=== PATIENT | female | born 1955 | race Caucasian/White ===

== ENCOUNTER → 2016-08-15 | Outpatient (CLI) | payer OTHER | LOC: BRMIMAGING 13:20 | PROVIDERS: ATTEND Family Medicine | DX: M81.0 Age-related osteoporosis without current pathological fracture (principal); Z78.0 Asymptomatic menopausal state ==

== ENCOUNTER 2016-08-24 06:09 | Inpatient (IN) | payer OTHER ==
[2016-08-24] MEDS ORDERED: TRANEXAMIC ACID 3,000 MG/50 ML BAG IRR ONE (06:49)
[2016-08-24] MEDS ORDERED: VANCOMYCIN 1 GM VIAL ONE (06:50)
[2016-08-24] MEDS ORDERED: CEFAZOLIN 2 GM/DEXTR 100 ML IV ONE (07:00)
[2016-08-24] MEDS ORDERED: ROPI/epiNEPH/KETOROLAC JOINT COCKTAIL IU ONE (07:00)
[2016-08-24] MEDS ORDERED: ACETAMINOPHEN 325 MG TAB PO ONE (07:00)
[2016-08-24] MEDS ORDERED: FAMOTIDINE 20 MG TAB PO ONE (07:00)
[2016-08-24] MEDS ORDERED: TRANEXAMIC ACID 3,000 MG in NS 50 ML IRR ONE (07:00)
[2016-08-24] MEDS ORDERED: CHLORHEXIDINE GLUC HIBICLENS 118 ML BTL TP ONE (07:00)
[2016-08-24] MEDS ORDERED: LIDOCAINE 1% 2 ML INJ ONE (07:34)
[2016-08-24] MEDS ORDERED: LR 1,000 ML IV ONE (07:45)
[2016-08-24] MEDS ORDERED: LIDOCAINE 1% 5 ML SDV ID PRN (07:45)
[2016-08-24] MEDS ORDERED: MIDAZOLAM 2 MG/2 ML VIAL ONE (07:48)
[2016-08-24] MEDS ORDERED: PROPOFOL/EMULSION 500 MG/50 ML BOTTLE IV ONE (07:53)
[2016-08-24] MEDS ORDERED: BUPIVACAINE 0.5% 30 ML SDV ONE (07:56)
[2016-08-24] MEDS ORDERED: CYCLOBENZAPRINE 10 MG TAB PO PRN (09:25)
[2016-08-24] MEDS ORDERED: PROMETHAZINE HCL 25 MG SUPPR PR PRN (09:25)
[2016-08-24] MEDS ORDERED: LACTULOSE 20 GM/30 ML UDCUP PO PRN (09:25)
[2016-08-24] MEDS ORDERED: PROMETHAZINE HCL 25 MG/ML INJ IVP PRN (09:25)
[2016-08-24] MEDS ORDERED: TEMAZEPAM 15 MG CAP PO PRN (09:25)
[2016-08-24] MEDS ORDERED: diphenhydrAMINE 25 MG CAP PO PRN (09:25)
[2016-08-24] MEDS ORDERED: ONDANSETRON DISINTEGRATING 4 MG TAB PO PRN (09:25)
[2016-08-24] MEDS ORDERED: BISACODYL 10 MG SUPP PR PRN (09:25)
[2016-08-24] MEDS ORDERED: METOCLOPRAMIDE 10 MG/2 ML VIAL IVP PRN (09:25)
[2016-08-24] MEDS ORDERED: MAGNESIUM HYDROXIDE 30 ML UDCUP PO PRN (09:25)
[2016-08-24] MEDS ORDERED: POLYETHYLENE GLYCOL 3350 17 GM PKT PO PRN (09:25)
[2016-08-24] MEDS ORDERED: DIPHENOXYLATE/ATROPINE LOMOTIL 1 TAB PO PRN (09:25)
[2016-08-24] MEDS ORDERED: PHARMACY PAIN CONSULT 1 EA MISC PRN (09:25)
[2016-08-24] MEDS ORDERED: ONDANSETRON 4 MG/2 ML VIAL IVP PRN (09:25)
--- NOTE | 2016-08-24 09:25 | POSTOPPROG ---
Post Op Note Date of Operation: 08/24/16 Surgeon: Nixon Dwyer Cullet Washer: irene dwyer Anesthesiologist: dr. mercado Anesthesia: Spinal Pre-op Diagnosis: left hip OA Post-op Diagnosis: same Indication: left hip pain due to OA that failed conservative measures Procedure: L GURPREET ant approach Findings: severe hip OA Inf/Abcess present in the surg proc area at time of surgery?: No EBL: 100-500
[2016-08-24] MEDS ORDERED: LR 1,000 ML IV SCH (09:30)
[2016-08-24] MEDS: traMADol 50 MG TAB PO PRN ×4 (12:07→22:10)
[2016-08-24] MEDS: ceFAZolin 2 GM/DEXTROSE 100 ML IV SCH ×2 (14:40→22:06)
[2016-08-24] MEDS: ASPIRIN 325 MG TAB PO SCH (19:42)
[2016-08-24] MEDS: FAMOTIDINE 20 MG TAB PO SCH (19:43)
[2016-08-24] MEDS: SENNOSIDES/DOCUSATE SODIUM TAB PO SCH (21:15)
[2016-08-25 04:49] LABS: HEMATOCRIT 27.4 % (38.0-47.0); HEMOGLOBIN 9.4 g/dL (12.6-16.3)
[2016-08-25 08:04] VITALS: TEMP 98
[2016-08-25] MEDS: ASPIRIN 325 MG TAB PO SCH (08:27)
[2016-08-25] MEDS: traMADol 50 MG TAB PO PRN (08:27)
[2016-08-25] MEDS: FAMOTIDINE 20 MG TAB PO SCH (08:27)
[2016-08-25] MEDS: SENNOSIDES/DOCUSATE SODIUM TAB PO SCH (08:28)
[2016-08-25 11:39] VITALS: BP 93/46; PULSE 70; RESP 20; O2SAT 90
--- NOTE | 2016-08-25 12:50 | SOAPPROG ---
SOAP Progress Note Assessment/Plan: Assessment: Alexandra is doing well POD 1 s/p L GURPREET pain management is well controlled on oral pain meds VTE ppx: aspirin recommended. cont MELANIE garcia Anemia: level expected initially postop D/c planning: d/c to home today, pending release from PT Plan: 08/25/16 12:49 Subjective: Alexandra is doing well today, denies SOB, chest pain and N/V> Objective: Vital Signs Temp Pulse Resp BP Pulse Ox 36.6 C 70 20 93/46 L 90 L 08/25/16 08:00 08/25/16 11:38 08/25/16 11:38 08/25/16 11:38 08/25/16 11:38 Laboratory Results 08/25/16 04:32 08/24/16 08/25/16 08/26/16 05:59 05:59 05:59 Intake Total 3130 Output Total 1500 Balance 1630 LLE: incision dressing is clean and dry, NVI, +pf/df ICD10 Worksheet Patient Problems: Problems Problem Status Onset Primary localized osteoarthritis of left hip Acute
--- NOTE | 2016-08-27 09:33 | GOP ---
[f rep st] OPERATIVE REPORT DATE OF OPERATION: 08/24/2016 SURGEON: Barbie Dodd MD FOOD SERVICE CLERK: LETA Antonio. ANESTHESIA: Spinal. PREOPERATIVE DIAGNOSIS: Left hip osteoarthritis. POSTOPERATIVE DIAGNOSIS: Left hip osteoarthritis. PROCEDURE PERFORMED: Left total hip arthroplasty. FINDINGS: ESTIMATED BLOOD LOSS: 200 cc. INDICATIONS: The patient has progressively worsening arthritis of the hip which has failed medical management. The patient understands the treatment options including continued non-operative care and has selected surgical intervention. The patient has decided to undergo total hip arthroplasty via the direct anterior approach, understanding the risks of the procedure including , but not limited to, neurovascular injury, infection, persistent pain, component wear and loosening, deep venous thrombosis, pulmonary embolism, limb length inequality, hip instability (including dislocation), and intra-operative fractures. DESCRIPTION OF PROCEDURE: After proper identification of the patient including verification and marking the surgical site, the patient was brought to the operating room and placed in the supine position. All bony prominences were well padded. Anesthesia was induced without complication and intravenous prophylactic antibiotics were administered prior to skin incision. The operative leg was placed in the Trumpf Arch table extension and the well leg in a Yellofin leg [place]. The patient was prepped and draped in the usual sterile fashion. The C-arm was draped for intra-operative fluoroscopy to check acetabular position, femoral component position including leg length and femoral offset. Attention was then drawn to surgical exposure of the hip. An incision was made with a #10 Bard Vitaly blade starting 3 cm lateral and 3 cm distal to the anterior superior iliac spine measuring 8-10 cm and coursing distally toward the greater trochanter. The skin and subcutaneous tissues were divided sharply down to the fascia harpreet. The fascia harpreet was incised in line with the skin incision exposing the underlying tensor fascia harpreet muscle. The muscle was bluntly elevated from the fascia and the first extracapsular Cobra retractor was placed laterally at the junction of the superior femoral neck and greater trochanter. The lateral femoral circumflex vessels were identified, cauterized , and divided with the Aquamantys bipolar cautery. The deep investing fascia of the TFL was divided to allow proper mobilization of the muscle preventing damage during the retraction. The reflected head of the rectus femoris muscle was elevated off the anterior hip capsule and a medial Cobra retractor was placed just proximal to the lesser trochanter. The anterior capsulotomy was made sharply from the superolateral acetabulum to the saddle junction of the superior femoral neck and greater trochanter, then coursing inferomedial towards the lesser trochanter. The retractors were then placed in the intracapsular position for femoral neck osteotomy. Corresponding to pre-operative templating, the osteotomy was made with the oscillating saw carefully protecting the greater trochanter and soft tissues. The femoral head was removed from the acetabulum with a corkscrew and confirmed to be severely arthritic with exposed bone, deformity and osteophytes. Similar findings were confirmed in the acetabulum. The Arch table extension was then placed in 40 degrees external rotation. Attention was then drawn to the acetabular preparation. After placement of the anterior and posterior Cobra retractors outside the labrum and intracapsular, the circumferential labrum was removed sharply. The foveal contents were then removed and hemostasis obtained with cautery. The first reamer selected was sized using the removed femoral head. Reaming began with medialization and then commenced in 2 mm increments at 45 degrees of abduction and 15 degrees of anteversion using fluoroscopic navigation. Reaming ceased 1 mm less than the definitive acetabular component and corresponded to the pre-operative templating. The final acetabular component was inserted using fluoroscopy to achieve proper orientation yielding excellent purchase and stability in the acetabulum. The final acetabular liner was then placed and its seating confirmed. Attention was then turned to the femur. The Arch table extension was placed in extension and adduction, delivering the osteotomized femoral neck into the wound. A 2-pronged femoral elevator was placed at the calcar and another at the tip of the greater trochanter. The posterolateral capsule was released with cautery allowing mobilization of the femur lateral and anterior for preparation. The external rotators were visualized and preserved. A curette and rongeur were used to open the starting point for broaching. Serial broaching started with the #0 broach and ended with the broach that exhibited excellent fit in the proximal femur. A change in pitch during mallet strikes was accompanied by the inability to advance the broach any further. The trial reduction was performed and fluoroscopic navigation was utilized to check limb length. Adjustments were made to equalize limb length accordingly. After the final trials were accepted they were removed and the wound was copiously lavaged. The femoral component was seated to the same depth as the final broach and the femoral head was impacted onto the clean trunnion. The hip was then reduced for the final time and once more fluoroscopy was used to check that limb length equality was achieved. The wound was irrigated and closed in layers, the fascia harpreet with 2-0 Quill, the subcutaneous tissue with 2-0 Quill, and the skin with Dermabond. Sterile dressings were applied. Final sharps and sponge counts were accurate. The patient was then transferred to a hospital bed and brought to the recovery room in stable condition. IMPLANTS: Accolate II, size 3, at 127. Acetabular component is a 48 mm Tritanium. The liner is a Trident X3, 32 mm. Head is a Biolox Delta, 32 mm +0. /[id number]/MODL MTDD
== END 2016-08-25 15:27 | disposition home or self-care (01) | DRG 470 ==
LOC: F3N 06:09
PROVIDERS: ADMIT Orthopaedic Surgery; ATTEND Orthopaedic Surgery
PROC: 0SRB04Z Replacement of Left Hip Joint with Ceramic on Polyethylene Synthetic Substitute, Open Approach (ICD-10-PCS; principal; 2016-08-24 08:15)
DX: M16.12 Unilateral primary osteoarthritis, left hip (principal); I10 Essential (primary) hypertension; F41.9 Anxiety disorder, unspecified
CPT/HCPCS: 97110-GP; 97116-GP; 97161-GP; 97165-GO; 97535-GO; J0171; J0690; J1885; J2250; J2704; J2795; J3370